=== PATIENT | male | born 1945 | race Caucasian/White ===

== ENCOUNTER 2016-05-14 14:47 | Outpatient (CLI) | payer MEDICARE, OTHER | END 2016-05-14 14:48 | disposition home or self-care (01) | DX: E61.1 Iron deficiency (principal) ==

== ENCOUNTER 2016-05-29 11:19 | Outpatient (CLI) | payer MEDICARE, OTHER | END 2016-05-29 11:20 | disposition home or self-care (01) | DX: K21.9 Gastro-esophageal reflux disease without esophagitis (principal); K51.30 Ulcerative (chronic) rectosigmoiditis without complications ==

== ENCOUNTER 2016-08-02 09:15 | Outpatient (CLI) | payer MEDICARE, OTHER ==
[2016-08-02 13:21] LABS: HEMOGLOBIN A1C 0.57 g/dL
[2016-08-02 13:26] LABS: ALBUMIN/GLOBULIN RATIO 1.3 (1.0-2.2); BILIRUBIN,TOTAL 0.6 mg/dL (0.2-1.0); BUN - BLOOD UREA NITROGEN 14 mg/dL (6-20); CARBON DIOXIDE - CO2 30 mmol/L (21-32); CHLORIDE 96 mmol/L (101-111); CHOL/HDL RATIO 3.2 (<5.0); CHOLESTEROL 162 mg/dL; CREATININE 0.9 mg/dL (0.6-1.2); GFR - MDRD 83 (>89); GLUCOSE 108 mg/dL (70-100); HDL CHOLESTEROL 50 mg/dL; LDL/HDL RATIO 1.7 (<3.6); POTASSIUM 3.8 mmol/L (3.5-5.0); SODIUM 133 mmol/L (135-145); TOTAL PROTEIN 7.2 g/dL (6.7-8.2); TRIGLYCERIDES 134 mg/dL; VLDL CHOLESTEROL 27 mg/dL
== END 2016-08-02 09:16 | disposition home or self-care (01) ==
LOC: LAB.WCP 09:15
PROVIDERS: ATTEND Physician Assistant Medical
DX: Z51.81 Encounter for therapeutic drug level monitoring (principal)
CPT/HCPCS: 36415; 80053; 80061; 82043; 83036; 84443

== ENCOUNTER 2016-08-09 13:18 | Outpatient (CLI) | payer MEDICARE, OTHER ==
[2016-08-09 19:15] LABS: BASOPHILS % (AUTO) 0.5 %; EOSINOPHILS # (AUTO) 0.1 10^3/uL (0.0-0.7); EOSINOPHILS % (AUTO) 1.1 %; HCT - HEMATOCRIT 37.7 % (42.0-52.0); HGB - HEMOGLOBIN 12.9 g/dL (14.0-18.0); LYMPHOCYTES # (AUTO) 1.5 10^3/uL (1.5-3.5); LYMPHOCYTES % (AUTO) 16.9 %; MEAN CORPUSCULAR HEMOGLOBIN 30.2 pg (27.0-31.0); MEAN CORPUSCULAR HGB CONC 34.3 g/dL (32.0-36.0); MEAN CORPUSCULAR VOLUME 88.2 fL (80.0-94.0); MEAN PLATELET VOLUME 8.4 fL (7.4-11.4); MONOCYTES # (AUTO) 0.8 10^3/uL (0.0-1.0); MONOCYTES % (AUTO) 8.8 %; NEUTROPHILS # (AUTO) 6.5 10^3/uL (1.5-6.6); NEUTROPHILS % (AUTO) 72.7 %; NUCLEATED RED BLOOD CELLS AUTO 0.1 /100WBC; RED BLOOD COUNT 4.27 10^6/uL (4.70-6.10); RED CELL DISTRIBUTION WIDTH 12.8 % (12.0-15.0)
== END 2016-08-09 13:19 | disposition home or self-care (01) ==
LOC: LAB.WCP 13:18
PROVIDERS: ATTEND Physician Assistant Medical
DX: E61.1 Iron deficiency (principal)
CPT/HCPCS: 36415; 82728; 85025

== ENCOUNTER 2016-12-02 13:45 | Outpatient (CLI) | payer MEDICARE, OTHER ==
[2016-12-02 19:17] LABS: BASOPHILS % (AUTO) 0.5 %; EOSINOPHILS # (AUTO) 0.1 10^3/uL (0.0-0.7); EOSINOPHILS % (AUTO) 1.9 %; HCT - HEMATOCRIT 38.6 % (42.0-52.0); HGB - HEMOGLOBIN 13.1 g/dL (14.0-18.0); LYMPHOCYTES # (AUTO) 1.3 10^3/uL (1.5-3.5); LYMPHOCYTES % (AUTO) 17.1 %; MEAN CORPUSCULAR HEMOGLOBIN 30.6 pg (27.0-31.0); MEAN PLATELET VOLUME 8.2 fL (7.4-11.4); MONOCYTES # (AUTO) 0.7 10^3/uL (0.0-1.0); MONOCYTES % (AUTO) 9.5 %; NEUTROPHILS # (AUTO) 5.5 10^3/uL (1.5-6.6); RED BLOOD COUNT 4.29 10^6/uL (4.70-6.10); RED CELL DISTRIBUTION WIDTH 12.6 % (12.0-15.0); UNCORRECTED WHITE BLOOD COUNT 7.7 x10^3/uL; WHITE BLOOD COUNT 7.7 x10^3/uL (4.8-10.8)
[2016-12-02 19:35] LABS: ALBUMIN/GLOBULIN RATIO 1.4 (1.0-2.2); BILIRUBIN,TOTAL 0.6 mg/dL (0.2-1.0); CALCIUM 9.3 mg/dL (8.5-10.3); CREATININE 0.8 mg/dL (0.6-1.2); POTASSIUM 3.9 mmol/L (3.5-5.0); TOTAL PROTEIN 7.1 g/dL (6.7-8.2)
== END 2016-12-02 13:46 | disposition home or self-care (01) ==
LOC: LAB.WCP 13:45
PROVIDERS: ATTEND Physician Assistant Medical
DX: J44.9 Chronic obstructive pulmonary disease, unspecified (principal); R53.83 Other fatigue; Z51.81 Encounter for therapeutic drug level monitoring; Z79.899 Other long term (current) drug therapy
CPT/HCPCS: 36415; 80053; 85025

== ENCOUNTER 2016-12-05 10:45 | Outpatient (CLI) | payer MEDICARE, OTHER ==
[2016-12-05 11:10] LABS: ALBUMIN/GLOBULIN RATIO 1.4 (1.0-2.2); BILIRUBIN,TOTAL 0.6 mg/dL (0.2-1.0); CALCIUM 9.1 mg/dL (8.5-10.3); CREATININE 0.9 mg/dL (0.6-1.2); POTASSIUM 3.9 mmol/L (3.5-5.0); TOTAL PROTEIN 7.3 g/dL (6.7-8.2)
[2016-12-05] MEDS ORDERED: IOPAMIDOL-300 100 ML VIAL ONE (11:52)
[2016-12-05] MEDS ORDERED: IOPAMIDOL-300 100 ML VIAL IVP ONE ×2 (12:15)
--- NOTE | 2016-12-05 13:14 | CT Report ---
CT CHEST WITH CONTRAST: 12/05/2016 CLINICAL INDICATION: Dyspnea on exertion. COMPARISON: 06/01/2014 TECHNIQUE: Axial CT images of the chest were obtained with 80 mL of Isovue-300 intravenously. In accordance with CT protocol optimization, one or more of the following dose reduction techniques w ere utilized for this exam: automated exposure control, adjustment of mA and/or KV based on patient size, or use of iterative reconstructive technique. FINDINGS: The heart and great vessels demonstrate mild atherosclerotic calcification. No hilar or m ediastinal lymphadenopathy is present. A small sliding hiatal hernia is noted. The lungs demonstrat e minimal atelectasis. No focal infiltrate, effusion, or pneumothorax is present. No suspicious pul monary nodule or mass lesion is seen. Limited evaluation of upper abdominal structures demonstrates normal adrenal glands. Osseous structures demonstrate degenerative changes. IMPRESSION: NO EVIDENT ETIOLOGY FOR PATIENT'S DYSPNEA. MINIMAL ATELECTASIS. JOB #: [id number] EXT JOB #:[id number]
== END 2016-12-05 10:46 | disposition home or self-care (01) ==
LOC: LAB 10:45
PROVIDERS: ATTEND Physician Assistant Medical
DX: J44.9 Chronic obstructive pulmonary disease, unspecified (principal); R06.00 Dyspnea, unspecified; Z51.81 Encounter for therapeutic drug level monitoring; Z79.899 Other long term (current) drug therapy
CPT/HCPCS: 36415; 71260; 80053; Q9967

== ENCOUNTER 2016-12-26 10:25 | Outpatient (CLI) | payer MEDICARE, OTHER ==
[2016-12-26] MEDS ORDERED: ADENOSINE 90 MG/30 ML VIAL IVP ONE (13:30)
--- NOTE | 2016-12-26 17:03 | Nuclear Medicine Report ---
EXAM: SINGLE-ISOTOPE PHARMACOLOGICAL STRESS TEST WITH ADENOSINE. SINGLE-ISOTOPE AND SAME-DAY REST/STRESS MY OCARDIAL PERFUSION SCANS WITH TOMOGRAPHIC IMAGING, QUANTITATIVE ANALYSIS, WALL MOTION ANALYSIS AND CA LCULATION OF EJECTION FRACTION. EXAM DATE: 12/26/2016 03:30 PM. CLINICAL HISTORY: DYSPNEA ON EXERTION. COMPARISON: None. TECHNIQUE: Following the intravenous administration of 10.7 mCi of Tc-99m sestamibi, a rest myocardia l perfusion scan was done with tomography. Motion correction was applied when appropriate. After a delay of several hours on the same day, a pharmacological stress was performed with the infus ion of 0.4 mg of Lexiscan. According to protocol, 41.5 mCi of Tc-99m sestamibi was injected for stres s myocardial perfusion scan. Stress myocardial perfusion was done with tomography without attenuation correction. Motion correction was applied when appropriate. Gated tomographic images were obtained for wall motion analysis and computation of left ventricular ejection fraction. FINDINGS: Perfusion images: Left ventricular chamber size is normal at rest and unchanged at stress. There is a moderate size region of moderately reduced uptake involving the entire inferior wall on st ress images which is similar on both rest and stress images, without convincing focal wall motion abn ormality on gated images, diaphragmatic attenuation artifact versus infarct No convincing reversible perfusion deficits. Gated images: No focal wall motion abnormality. The left ventricular ejection fraction is estimated at 67% (normal > 50%). IMPRESSION: 1. No convincing reversible perfusion deficits to indictate stress-induced ischemia. 2. Moderate size, moderate severity fixed inferior wall perfusion deficit may represent diaphragmatic attenuation artifact, versus infarct. 3. Left ventricular ejection fraction of 67% (normal > 50%). 4. No focal wall motion abnormalities. [facility] Referring Provider Line: [phone] SITE ID: [id number]
[2016-12-26 19:03] VITALS: BP 132/70
--- NOTE | 2016-12-26 22:48 | CARDIAC PROCEDURE NOTE ---
DATE OF SERVICE: 12/26/2016 00:00:00 PRIMARY CARE PHYSICIAN: IVONE Fuentes PROCEDURE: Pharmacologic stress test. PROCEDURE SYMPTOMS: Chest pain and dyspnea on exertion. CARDIAC RISK FACTORS: Include age, hypertension, hyperlipidemia, and diabetes. PREVIOUS CARDIAC PROCEDURES: MPS in February 2015. CLINICAL HISTORY: A 71-year-old male without known coronary artery disease. He uses home oxygen. INITIAL RESTING VITAL SIGNS: BP 132/70, heart rate 66, height 67 inches, weight 207 pounds, BMI 31.7. SaO2 of 95%. PROCEDURE AND FINDINGS: The patient's identity and date verified. Consent signed. Safety stop. Pharmacologic stress testing was performed with adenosine at a dose of 140 mcg/kg per minute over 6 m inutes. The heart rate increased to 93 beats per minute from the infusion. Blood pressure response wa s normal during the stress procedure. The patient developed infusion related symptoms including chest heaviness, shortness of breath, and flushing. Symptoms resolved spontaneously. The resting ECG demon strated normal sinus rhythm with no ST or T-wave changes. Maximum ST segment depression with stress w as less than 0.5 mm and upsloping. There were rare PVCs. FINAL IMPRESSIONS 1. Negative electrocardiogram for ischemia in the setting of vasodilator stress. 2. Nondiagnostic stress test for angina. DISCUSSION AND RECOMMENDATIONS: Await myocardial perfusion report. JOB #: [id number] EXT JOB #:[id number]
== END 2016-12-26 10:26 | disposition home or self-care (01) ==
LOC: DI 10:25
PROVIDERS: ATTEND Physician Assistant Medical
DX: R06.00 Dyspnea, unspecified (principal); I10 Essential (primary) hypertension; E78.5 Hyperlipidemia, unspecified; E11.9 Type 2 diabetes mellitus without complications; R07.9 Chest pain, unspecified
CPT/HCPCS: 78452; 93017; A9500; J0153

== ENCOUNTER 2017-05-29 08:00 | Outpatient (CLI) | payer MEDICARE, OTHER ==
[2017-05-29 12:44] LABS: BASOPHILS % (AUTO) 0.4 %; EOSINOPHILS # (AUTO) 0.2 10^3/uL (0.0-0.7); EOSINOPHILS % (AUTO) 3.2 %; HGB - HEMOGLOBIN 13.1 g/dL (14.0-18.0); LYMPHOCYTES # (AUTO) 1.1 10^3/uL (1.5-3.5); LYMPHOCYTES % (AUTO) 18.5 %; MEAN CORPUSCULAR HEMOGLOBIN 30.8 pg (27.0-31.0); MEAN CORPUSCULAR HGB CONC 34.8 g/dL (32.0-36.0); MEAN CORPUSCULAR VOLUME 88.7 fL (80.0-94.0); MEAN PLATELET VOLUME 8.3 fL (7.4-11.4); MONOCYTES # (AUTO) 0.6 10^3/uL (0.0-1.0); MONOCYTES % (AUTO) 10.1 %; NEUTROPHILS # (AUTO) 4.2 10^3/uL (1.5-6.6); NEUTROPHILS % (AUTO) 67.8 %; PLT - PLATELET COUNT 200 10^3/uL (130-450); RED BLOOD COUNT 4.25 10^6/uL (4.70-6.10); RED CELL DISTRIBUTION WIDTH 12.6 % (12.0-15.0); WHITE BLOOD COUNT 6.2 x10^3/uL (4.8-10.8)
[2017-05-29 13:01] LABS: THYROID STIMULATING HORMONE 1.98 uIU/mL (0.34-5.60)
[2017-05-29 13:04] LABS: % IRON SATURATION 20 % (20-50); ALBUMIN 4.3 g/dL (3.2-5.5); ALBUMIN/GLOBULIN RATIO 1.6 (1.0-2.2); ALKALINE PHOSPHATASE 43 IU/L (42-121); ALT ALANINE AMINOTRANSFERASE 15 IU/L (10-60); AST ASPARTATE AMINOTRANSFERASE 14 IU/L (10-42); BILIRUBIN,TOTAL 0.3 mg/dL (0.2-1.0); BUN - BLOOD UREA NITROGEN 17 mg/dL (6-20); CALCIUM 8.9 mg/dL (8.5-10.3); CARBON DIOXIDE - CO2 32 mmol/L (21-32); CHLORIDE 94 mmol/L (101-111); CHOL/HDL RATIO 3.6 (<5.0); CHOLESTEROL 161 mg/dL; CREATININE 0.8 mg/dL (0.6-1.2); GFR - MDRD 95 (>89); GLUCOSE 108 mg/dL (70-100); HDL CHOLESTEROL 45 mg/dL; IRON 70 ug/dL (45-182); LDL CHOLESTEROL,CALCULATED 87 mg/dL; LDL/HDL RATIO 1.9 (<3.6); SODIUM 131 mmol/L (135-145); TOTAL IRON BINDING CAPACITY 349 ug/dL (250-450); TRANSFERRIN 249 mg/dL (180-329); VLDL CHOLESTEROL 29 mg/dL
[2017-05-29 13:06] LABS: FERRITIN 34.7 ng/mL (23.9-336.2)
[2017-05-29 15:41] LABS: HB2 TOTAL 14.2 g/dL; HEMOGLOBIN A1C 0.59 g/dL
== END 2017-05-29 08:01 | disposition home or self-care (01) ==
LOC: LAB.WCP 08:00
PROVIDERS: ATTEND Physician Assistant Medical
DX: E11.9 Type 2 diabetes mellitus without complications (principal); E61.1 Iron deficiency; E64.9 Sequelae of unspecified nutritional deficiency; Z51.81 Encounter for therapeutic drug level monitoring; Z79.899 Other long term (current) drug therapy
CPT/HCPCS: 36415; 80053; 80061; 82728; 83036; 83540; 83721; 84443; 84466; 85025

== ENCOUNTER 2017-09-12 10:17 | Outpatient (CLI) | payer MEDICARE, OTHER ==
[2017-09-12 19:10] LABS: BASOPHILS # (AUTO) 0.1 10^3/uL (0.0-0.1); BASOPHILS % (AUTO) 1.4 %; EOSINOPHILS # (AUTO) 0.2 10^3/uL (0.0-0.7); EOSINOPHILS % (AUTO) 3.3 %; LYMPHOCYTES # (AUTO) 1.2 10^3/uL (1.5-3.5); MEAN CORPUSCULAR HEMOGLOBIN 30.6 pg (27.0-31.0); MEAN CORPUSCULAR HGB CONC 34.1 g/dL (32.0-36.0); MEAN PLATELET VOLUME 7.8 fL (7.4-11.4); MONOCYTES # (AUTO) 0.7 10^3/uL (0.0-1.0); MONOCYTES % (AUTO) 10.3 %; NEUTROPHILS # (AUTO) 4.4 10^3/uL (1.5-6.6); PLT - PLATELET COUNT 219 10^3/uL (130-450); RED CELL DISTRIBUTION WIDTH 12.7 % (12.0-15.0); WHITE BLOOD COUNT 6.6 x10^3/uL (4.8-10.8)
[2017-09-12 19:12] LABS: BILIRUBIN,URINE NEGATIVE (NEGATIVE); GLUCOSE, URINE (UA) NEGATIVE (NEGATIVE); KETONES,URINE (UA) NEGATIVE (NEGATIVE); LEUKOCYTE ESTERASE, URINE NEGATIVE (NEGATIVE); NITRITE,URINE NEGATIVE (NEGATIVE); OCCULT BLOOD,URINE NEGATIVE (NEGATIVE); PH,URINE 6.5 PH (5.0-7.5); PROTEIN,URINE NEGATIVE (NEGATIVE); UROBILINOGEN,URINE 0.2 (NORMAL) E.U./dL (NORMAL)
[2017-09-12 19:14] LABS: CLARITY,URINE CLEAR (CLEAR)
[2017-09-12 19:27] LABS: BACTERIA,URINE None Seen /HPF (None Seen); RBC,URINE None Seen /HPF (0-5); SQUAMOUS EPITHELIAL CELL,UR NONE SEEN (<= Few)
[2017-09-12 19:44] LABS: ALBUMIN 3.7 g/dL (3.2-5.5); ALBUMIN/GLOBULIN RATIO 1.2 (1.0-2.2); ALKALINE PHOSPHATASE 47 IU/L (42-121); ALT ALANINE AMINOTRANSFERASE 14 IU/L (10-60); AST ASPARTATE AMINOTRANSFERASE 15 IU/L (10-42); BILIRUBIN,TOTAL 0.9 mg/dL (0.2-1.0); BUN - BLOOD UREA NITROGEN 17 mg/dL (6-20); CALCIUM 9.1 mg/dL (8.5-10.3); CARBON DIOXIDE - CO2 30 mmol/L (21-32); CHLORIDE 93 mmol/L (101-111); CHOL/HDL RATIO 2.9 (<5.0); CHOLESTEROL 146 mg/dL; CREATININE 0.9 mg/dL (0.6-1.2); GFR - MDRD 82 (>89); GLUCOSE 98 mg/dL (70-100); HDL CHOLESTEROL 50 mg/dL; LDL CHOLESTEROL,CALCULATED 76 mg/dL; LDL/HDL RATIO 1.5 (<3.6); SODIUM 130 mmol/L (135-145); TOTAL PROTEIN 6.7 g/dL (6.7-8.2); VLDL CHOLESTEROL 20 mg/dL
[2017-09-12 19:51] LABS: THYROID STIMULATING HORMONE 1.37 uIU/mL (0.34-5.60)
== END 2017-09-12 10:18 | disposition home or self-care (01) ==
LOC: LAB.WCP 10:17
PROVIDERS: ATTEND Family Medicine
DX: R53.83 Other fatigue (principal); E61.1 Iron deficiency; K51.90 Ulcerative colitis, unspecified, without complications; E11.9 Type 2 diabetes mellitus without complications; K22.70 Barrett's esophagus without dysplasia; I10 Essential (primary) hypertension
CPT/HCPCS: 36415; 80053; 80061; 81001; 82306; 82607; 82746; 84443; 85025; G0103; 83721; 84153; 87086

== ENCOUNTER → 2017-12-19 | Outpatient (CLI) | payer MEDICARE, OTHER ==
[2017-12-19 18:31] LABS: BASOPHILS % (AUTO) 0.6 %; EOSINOPHILS # (AUTO) 0.2 10^3/uL (0.0-0.7); EOSINOPHILS % (AUTO) 2.4 %; LYMPHOCYTES # (AUTO) 1.4 10^3/uL (1.5-3.5); LYMPHOCYTES % (AUTO) 20.3 %; MEAN CORPUSCULAR HEMOGLOBIN 29.7 pg (27.0-31.0); MEAN CORPUSCULAR HGB CONC 33.1 g/dL (32.0-36.0); MEAN CORPUSCULAR VOLUME 89.9 fL (80.0-94.0); MEAN PLATELET VOLUME 8.4 fL (7.4-11.4); MONOCYTES # (AUTO) 0.7 10^3/uL (0.0-1.0); NEUTROPHILS # (AUTO) 4.5 10^3/uL (1.5-6.6); NEUTROPHILS % (AUTO) 66.7 %; PLT - PLATELET COUNT 195 10^3/uL (130-450); RED BLOOD COUNT 4.37 10^6/uL (4.70-6.10); RED CELL DISTRIBUTION WIDTH 12.7 % (12.0-15.0); WHITE BLOOD COUNT 6.7 x10^3/uL (4.8-10.8)
[2017-12-19 18:49] LABS: HB2 TOTAL 13.3 g/dL; HEMOGLOBIN A1C 0.59 g/dL; HEMOGLOBIN A1C % 6.2 % (4.6-6.2)
[2017-12-19 18:52] LABS: ALBUMIN 4.1 g/dL (3.2-5.5); ALBUMIN/GLOBULIN RATIO 1.5 (1.0-2.2); ALKALINE PHOSPHATASE 55 IU/L (42-121); ALT ALANINE AMINOTRANSFERASE 14 IU/L (10-60); AST ASPARTATE AMINOTRANSFERASE 15 IU/L (10-42); BILIRUBIN,TOTAL 0.7 mg/dL (0.2-1.0); BUN - BLOOD UREA NITROGEN 18 mg/dL (6-20); CARBON DIOXIDE - CO2 32 mmol/L (21-32); CHLORIDE 93 mmol/L (101-111); CHOL/HDL RATIO 3.5 (<5.0); CHOLESTEROL 165 mg/dL; CREATININE 0.9 mg/dL (0.6-1.2); GFR - MDRD 82 (>89); GLUCOSE 100 mg/dL (70-100); HDL CHOLESTEROL 47 mg/dL; LDL CHOLESTEROL,CALCULATED 93 mg/dL; SODIUM 132 mmol/L (135-145); TOTAL PROTEIN 6.8 g/dL (6.7-8.2); VLDL CHOLESTEROL 25 mg/dL
[2017-12-22 14:23] LABS: PSA FREE 0.36 ng/mL (0.16-2.81)
[2017-12-22 14:24] LABS: PSA TOTAL 2.46 ng/mL (0.000-2.000)
== END ==
LOC: LAB.WCP 08:00
PROVIDERS: ATTEND Physician Assistant Medical
DX: E11.9 Type 2 diabetes mellitus without complications (principal); Z12.5 Encounter for screening for malignant neoplasm of prostate; E61.1 Iron deficiency; R97.20 Elevated prostate specific antigen [PSA]
CPT/HCPCS: 36415; 80053; 80061; 83036; 84154; 85025; G0103; 83721; 84153

== ENCOUNTER 2018-04-20 11:01 | Outpatient (CLI) | payer MEDICARE, OTHER ==
[2018-04-20 20:07] LABS: CALCIUM 9.2 mg/dL (8.5-10.3)
[2018-04-20 22:01] LABS: HB2 TOTAL 14.6 g/dL; HEMOGLOBIN A1C 0.61 g/dL
== END 2018-04-20 11:02 | disposition home or self-care (01) ==
LOC: LAB.WCP 11:01
PROVIDERS: ATTEND Physician Assistant Medical
DX: E11.9 Type 2 diabetes mellitus without complications (principal)
CPT/HCPCS: 36415; 80048; 83036

== ENCOUNTER 2018-07-06 16:24 | Emergency (ER) | payer MEDICARE, OTHER ==
--- NOTE | 2018-07-06 16:47 | ED Physician Documentation ---
PD HPI FOCAL NEURO - Stated complaint Stated Complaint: DIZZY/HBP - Chief complaint Chief Complaint: Neuro - History obtained from History obtained from: Patient - History of Present Illness Timing - onset: Other (73-year-old gentleman with history of hypertension and COPD with oxygen dependence presents with about 3 days of lightheadedness disequilibrium and mild headache. He checked his blood pressure today noted to be about 180/90 and this concerned him. He says he last had it checked about 2 months ago and it was okay but does not remember the numbers. He denies chest pain with it. He does have mildly increased over baseline shortness of breath with productive cough.) Review of Systems Ten Systems: 10 systems reviewed and negative Constitutional: denies: Fever, Chills Nose: denies: Rhinorrhea / runny nose, Congestion Cardiac: denies: Chest pain / pressure, Palpitations, Pedal edema, Calf pain Respiratory: reports: Dyspnea, Cough, Wheezing. denies: Hemoptysis GI: denies: Abdominal Pain, Nausea, Vomiting, Diarrhea PD PAST MEDICAL HISTORY - Past Medical History Cardiovascular: Hypertension, High cholesterol Respiratory: COPD Endocrine/Autoimmune: None GI: GERD, Ulcerative colitis, Other : None HEENT:  Psych: Claustrophobia Musculoskeletal: Osteoarthritis Derm: Other - Past Surgical History General: Colonoscopy, EGD - Present Medications Home Medications: Ambulatory Orders Medication Instructions Recorded Confirmed Hydrochlorothiazide 25 mg PO DAILY 03/10/14 08/15/14 Mesalamine [Lialda] 3 tab PO BID 03/10/14 08/15/14 PARoxetine [Paxil] 15 mg PO DAILY 03/10/14 08/15/14 Albuterol Sulfate [Proair PRN 07/06/18 Respiclick] Ipratropium [place] 2 sprays INH DAILY 07/06/18 07/06/18 Losartan Potassium 1 tab ORAL BID 07/06/18 07/06/18 Pravastatin Sodium 1 tab ORAL BID 07/06/18 07/06/18 Tiotropium Br/Olodaterol HCl 2 puffs INH DAILY 07/06/18 07/06/18 [Stiolto Respimat Inhal [place]] amLODIPine [Norvasc] 5 mg ORAL BID 07/06/18 07/06/18 metFORMIN [Glucophage] 1 tab ORAL DAILY 07/06/18 07/06/18 raNITIdine [Zantac] 1 tab ORAL BID 07/06/18 07/06/18 - Allergies Allergies/Adverse Reactions: Allergies Allergy/AdvReac Type Severity Reaction Status Date / Time No Known Drug Allergies Allergy Verified 07/06/18 16:29 PD ED PE NORMAL - Vitals Vital signs reviewed: Yes - General General: Alert and oriented X 3, No acute distress - HEENT HEENT: PERRL, EOMI - Neck Neck: Supple, no meningeal sign, No bony TTP - Cardiac Cardiac: RRR, No murmur - Respiratory Respiratory: No respiratory distress, Other (Rhonchorous and wheezy throughout) - Abdomen Abdomen: Soft, Non tender - Derm Derm: Normal color, Warm and dry, No rash - Extremities Extremities: No edema, No calf tenderness / cord - Neuro Neuro: Alert and oriented X 3, oil and gas drafter 2-12 intact, No motor deficit, No sensory deficit, Normal speech Results - Vitals Vitals: Vital Signs - 24 hr 07/06/18 07/06/18 16:26 17:45 Temperature 36.4 C L Heart Rate 83 74 Respiratory 22 16 Rate Blood Pressure 171/88 H 143/77 H O2 Saturation 97 98 Oxygen O2 Source Nasal cannula - EKG (time done) 1640 Rate: Rate (enter#) (76) Rhythm: NSR (With occasional PVCs) [place]: Normal Intervals: Normal [place] QRS: Low voltage Ischemia: Normal ST segments Computer interpretation: Agree with computer - Labs Labs: Laboratory Tests 07/06/18 07/06/18 07/06/18 16:55 16:55 16:55 WBC 8.5 RBC 4.23 L Hgb 12.8 L Hct 37.5 L MCV 88.6 MCH 30.3 MCHC 34.2 RDW 12.2 Plt Count 183 MPV 7.8 Neut # (Auto) 6.3 Lymph # (Auto) 1.2 L [place] # (Auto) 0.8 Eos # (Auto) 0.2 Baso # (Auto) 0.0 Absolute Nucleated RBC 0.00 Nucleated RBC % 0.0 Sodium 137 Potassium 3.3 L Chloride 98 L Carbon Dioxide 31 Anion Gap 8.0 BUN 18 Creatinine 0.9 Estimated GFR (MDRD) 82 L Glucose 120 H Calcium 9.3 Total Bilirubin 0.2 AST 15 ALT 16 Alkaline Phosphatase 54 Troponin I < 0.04 Total Protein 6.7 Albumin 3.9 Globulin 2.8 Albumin/Globulin Ratio 1.4 Lipase 29 - Rads (name of study) Ct head Radiology: EMP read contemporaneously (NAD) 2v chest Radiology: EMP read contemporaneously (NAD) PD MEDICAL DECISION MAKING - ED course ED course: 73-year-old gentleman with history of hypertension and COPD on oxygen presents with nonspecific headache, dizziness, mild increase in shortness of breath. He appears well. He was most worried about his blood pressure which throughout his ED course drifted down without specific intervention to 140/70. The only pertinent positive finding was stable anemia and mild hypokalemia which was repleted orally. Departure - Departure Disposition: 01 Home, Self Care Clinical Impression: Dizziness, Hypokalemia Headache Qualifiers: Headache type: unspecified Headache chronicity pattern: acute headache Intractability: not intractable Qualified Code(s): R51 - Headache Hypertension Qualifiers: Hypertension type: essential hypertension Qualified Code(s): I10 - Essential (primary) hypertension Condition: Good Record reviewed to determine appropriate education?: Yes Instructions: ED Dizziness UKO, Hypokalemia Dc Comments: Call your doctor to arrange a follow-up appointment, make the next available appointment. In the interim, return anytime if worse or if new symptoms develop.
[2018-07-06 17:05] LABS: BASOPHILS % (AUTO) 0.3 %; EOSINOPHILS # (AUTO) 0.2 10^3/uL (0.0-0.7); EOSINOPHILS % (AUTO) 2.3 %; HGB - HEMOGLOBIN 12.8 g/dL (14.0-18.0); LYMPHOCYTES # (AUTO) 1.2 10^3/uL (1.5-3.5); LYMPHOCYTES % (AUTO) 14.2 %; MEAN CORPUSCULAR HEMOGLOBIN 30.3 pg (27.0-31.0); MEAN CORPUSCULAR HGB CONC 34.2 g/dL (32.0-36.0); MEAN CORPUSCULAR VOLUME 88.6 fL (80.0-94.0); MEAN PLATELET VOLUME 7.8 fL (7.4-11.4); MONOCYTES # (AUTO) 0.8 10^3/uL (0.0-1.0); MONOCYTES % (AUTO) 9.4 %; NEUTROPHILS # (AUTO) 6.3 10^3/uL (1.5-6.6); NEUTROPHILS % (AUTO) 73.8 %; PLT - PLATELET COUNT 183 10^3/uL (130-450); RED BLOOD COUNT 4.23 10^6/uL (4.70-6.10); RED CELL DISTRIBUTION WIDTH 12.2 % (12.0-15.0); WHITE BLOOD COUNT 8.5 x10^3/uL (4.8-10.8)
[2018-07-06 17:16] LABS: ALBUMIN 3.9 g/dL (3.2-5.5); ALBUMIN/GLOBULIN RATIO 1.4 (1.0-2.2); BILIRUBIN,TOTAL 0.2 mg/dL (0.2-1.0); CALCIUM 9.3 mg/dL (8.5-10.3); CREATININE 0.9 mg/dL (0.6-1.2); TOTAL PROTEIN 6.7 g/dL (6.7-8.2)
--- NOTE | 2018-07-06 17:46 | CT Report ---
Reason: headache, unsteady Procedure Date: 07/06/2018 Accession Number: [id number] / [id number] Procedure: CT - HEAD WO CPT Code: FULL RESULT: EXAM: CT HEAD EXAM DATE: 07/06/2018 05:20 PM. CLINICAL HISTORY: Headache, unsteady. COMPARISON: BRAIN W/WO 08/30/2013 3:53 PM. TECHNIQUE: Multiaxial CT images were obtained from the foramen magnum to the vertex. Reformats: Sagittal and coronal. IV contrast: None. In accordance with CT protocol optimization, one or more of the following dose reduction techniques were utilized for this exam: automated exposure control, adjustment of mA and/or KV based on patient size, or use of iterative reconstructive technique. FINDINGS: The imaged portions of the orbits are normal in appearance. There is a mucous retention cyst in the right maxillary sinus. The remainder of the paranasal sinuses are normally aerated. The bilateral mastoid air cells are normally aerated. There is calcific plaquing of the cavernous and supraclinoid intracranial internal carotid arteries bilaterally. There is no acute collection of blood or blood products, or mass. There is no midline shift. The parekh-white differentiation remains distinct. Cerebral volume and ventricular size are normal. The imaged portions of the orbits are normal in appearance. The bilateral parotid spaces exhibit symmetric densities. IMPRESSION: 1. There is no acute intracranial abnormality.
[2018-07-06 17:50] VITALS: BP 143/77
--- NOTE | 2018-07-06 18:02 | XRAY Report ---
Reason: cough, bronchitis Procedure Date: 07/06/2018 Accession Number: [id number] / [id number] Procedure: XR - Chest 2 View X-Ray CPT Code: 87194 FULL RESULT: EXAM: CHEST RADIOGRAPHY EXAM DATE: 07/06/2018 05:20 PM. CLINICAL HISTORY: Cough, bronchitis. COMPARISON: CHEST 2 VIEW PA/LAT 08/22/2015 3:51 PM. TECHNIQUE: 2 views. FINDINGS: Lungs/Pleura: No focal opacities evident. No pleural effusion. No pneumothorax. Normal volumes. Mediastinum: Heart and mediastinal contours are unremarkable. Other: Small hiatal hernia. IMPRESSION: No acute pulmonary airspace disease. Small hiatal hernia. [facility]
[2018-07-06] MEDS ORDERED: POTASSIUM CHLORIDE 20 MEQ TABLET PO STA (18:08)
== END 2018-07-06 18:21 | disposition home or self-care (01) ==
LOC: ED 16:24
DX: R42 Dizziness and giddiness (principal); E87.6 Hypokalemia; R51 Headache; I10 Essential (primary) hypertension; J44.9 Chronic obstructive pulmonary disease, unspecified; Z99.81 Dependence on supplemental oxygen
CPT/HCPCS: 36415; 70450; 71046; 80053; 83690; 84484; 85025; 93005; 99283; A9270

== ENCOUNTER 2018-07-30 09:06 | Outpatient (CLI) | payer MEDICARE, OTHER ==
[2018-07-30] MEDS ORDERED: GADOBUTROL 10 MMOL/10 ML VIAL ONE (10:18)
--- NOTE | 2018-07-30 10:30 | Ultrasound Report ---
Reason: DIZZINESS, VISION DISORDER Procedure Date: 07/30/2018 Accession Number: [id number] / [id number] Procedure: US - Carotid Doppler Complete CPT Code: FULL RESULT: EXAM: BILATERAL CAROTID AND VERTEBRAL ARTERY DUPLEX DOPPLER ULTRASOUND: EXAM DATE: 07/30/2018 09:50 AM CLINICAL HISTORY: Dizziness, vision disorder. COMPARISON: 07/30/2018 10:02 AM. TECHNIQUE: Grayscale imaging, color Doppler, and duplex spectral Doppler were used to evaluate the carotid and vertebral arteries bilaterally. Static images were obtained. FINDINGS: No significant plaque is identified in the right or left common or internal carotid arteries. Normal antegrade flow is present in bilateral vertebral arteries. VELOCITIES: Right CCA mid: PSV 92 cm/sec CCA dist: PSV 59 cm/sec ICA prox: PSV 45 cm/sec, EDV 13 cm/sec ICA mid: PSV 68 cm/sec, EDV 21 cm/sec ICA dist: PSV 53 cm/sec, EDV 13 cm/sec ECA: PSV 112 cm/sec Vert: PSV 57 cm/sec ICA/CCA: 0.74 Left CCA mid: PSV 83 cm/sec CCA dist: PSV 72 cm/sec ICA prox: PSV 81 cm/sec, EDV 23 cm/sec ICA mid: PSV 78 cm/sec, EDV 25 cm/sec ICA dist: PSV 51 cm/sec, EDV 12 cm/sec ECA: PSV 120 cm/sec Vert: PSV 53 cm/sec ICA/CCA: 0.98 ICA diameter stenosis: Right: <50% by velocity and <70% by NASCET criteria. Left: <50% by velocity and <70% by NASCET criteria. IMPRESSION: 1. No significant bilateral carotid artery plaquing. 2. In the right carotid artery there are no elevated carotid artery velocities to suggest hemodynamically significant stenosis. 3. In the left carotid artery there are no elevated carotid artery velocities to suggest hemodynamically significant stenosis. 4. Normal antegrade flow is present in bilateral vertebral arteries. Management recommendations and diagnostic criteria are based on current IAC endorsed standards in Carotid Artery Stenosis: Grayscale and Doppler Ultrasound Diagnosis. Validated velocity measurements with angiographic measurements and velocity criteria are extrapolated from diameter data as defined by the Society of Radiologists in Ultrasound Consensus Conference Radiology 2003; 229;340-346. [facility]
[2018-07-30] MEDS ORDERED: GADOBUTROL 10 MMOL/10 ML VIAL IVP ONE (11:14)
--- NOTE | 2018-07-30 20:03 | MRI Report ---
Reason: DIZZINESS, VISION DISORDER Procedure Date: 07/30/2018 Accession Number: [id number] / [id number] Procedure: MRI - Brain W/WO CPT Code: FULL RESULT: EXAM: MRI BRAIN WITHOUT AND WITH CONTRAST EXAM DATE: 07/30/2018 11:18 AM. CLINICAL HISTORY: DIZZINESS, VISION DISORDER. COMPARISON: BRAIN W/WO 08/30/2013 3:53 PM. TECHNIQUE: Multiplanar, multisequence T1-weighted and fluid-sensitive MR sequences of the brain were performed. Sequences optimized for routine evaluation. Other: None. IV Contrast: 9.5 mL Gadavist. FINDINGS: The diffusion-weighted images are normal. There is no evidence of acute or subacute cerebral infarction. The FLAIR images demonstrate multiple punctate and confluent areas of T2 hyperintensity within the subcortical, deep, and periventricular white matter. This is consistent with a mild to moderate degree of chronic small vessel ischemia. There is enlargement of the lateral ventricles and the third ventricle but not out of proportion to the enlargement of the cerebral sulci. This is consistent with a mild degree of generalized volume loss. There is normal enhancement within the deep venous sinuses. There is normal enhancement within the brain parenchyma. The T2* sequence is normal. There is no evidence of subacute or chronic hemorrhage. The corpus callosum is of normal size and configuration. The pituitary and sella are normal. The craniocervical junction is normal. The images are degraded by motion. The optic nerves demonstrate symmetric signal intensity and size. There is mild mucosal thickening in the ethmoid air cells and a small mucus retention cyst in the right maxillary sinus. The bilateral parotid spaces exhibit normal signal intensity. The cerebral vascular flow voids are patent. There is normal enhancement within the orbits. IMPRESSION: 1. There is no evidence of acute or subacute cerebral infarction. 2. There is no evidence of intraorbital mass. 3. There is mild to moderate degree of chronic small vessel ischemia and mild degree of generalized volume loss. 4. There is no enhancing brain mass.
== END 2018-07-30 09:07 | disposition home or self-care (01) ==
LOC: DI 09:06
PROVIDERS: ATTEND Physician Assistant Medical
DX: R42 Dizziness and giddiness (principal); H53.9 Unspecified visual disturbance; I67.82 Cerebral ischemia
CPT/HCPCS: 70553; 93880; A9585

== ENCOUNTER 2018-09-16 | Outpatient (CLI) | payer MEDICARE, OTHER | END 2018-09-16 13:37 | disposition home or self-care (01) | DX: M25.462 Effusion, left knee (principal); M25.562 Pain in left knee ==

== ENCOUNTER 2018-09-16 | Outpatient (CLI) | payer MEDICARE, OTHER | END 2018-09-16 13:39 | disposition home or self-care (01) | DX: S82.832A Other fracture of upper and lower end of left fibula, initial encounter for closed fracture (principal) ==

== ENCOUNTER 2018-09-16 | Outpatient (CLI) | payer MEDICARE, OTHER | END 2018-09-16 13:40 | disposition home or self-care (01) | DX: S82.832A Other fracture of upper and lower end of left fibula, initial encounter for closed fracture (principal); M19.072 Primary osteoarthritis, left ankle and foot; M25.462 Effusion, left knee; M25.562 Pain in left knee ==

== ENCOUNTER 2018-10-27 08:00 | Outpatient (CLI) | payer MEDICARE, OTHER ==
[2018-10-27 18:42] LABS: BASOPHILS % (AUTO) 0.6 %; EOSINOPHILS # (AUTO) 0.2 10^3/uL (0.0-0.7); EOSINOPHILS % (AUTO) 2.9 %; HGB - HEMOGLOBIN 12.6 g/dL (14.0-18.0); LYMPHOCYTES # (AUTO) 1.3 10^3/uL (1.5-3.5); LYMPHOCYTES % (AUTO) 19.8 %; MEAN CORPUSCULAR HEMOGLOBIN 30.4 pg (27.0-31.0); MEAN CORPUSCULAR HGB CONC 31.9 g/dL (32.0-36.0); MEAN CORPUSCULAR VOLUME 95.2 fL (80.0-94.0); MEAN PLATELET VOLUME 10.9 fL (7.4-11.4); MONOCYTES # (AUTO) 0.7 10^3/uL (0.0-1.0); MONOCYTES % (AUTO) 10.2 %; NEUTROPHILS # (AUTO) 4.5 10^3/uL (1.5-6.6); NEUTROPHILS % (AUTO) 66.2 %; PLT - PLATELET COUNT 199 10^3/uL (130-450); RED BLOOD COUNT 4.15 10^6/uL (4.70-6.10); RED CELL DISTRIBUTION WIDTH 12.3 % (12.0-15.0); WHITE BLOOD COUNT 6.8 x10^3/uL (4.8-10.8)
[2018-10-27 19:02] LABS: HEMOGLOBIN A1C 0.53 g/dL; HEMOGLOBIN A1C % 5.9 % (4.6-6.2)
[2018-10-27 19:11] LABS: ALBUMIN 3.9 g/dL (3.2-5.5); ALBUMIN/GLOBULIN RATIO 1.3 (1.0-2.2); ALKALINE PHOSPHATASE 55 IU/L (42-121); ALT ALANINE AMINOTRANSFERASE 13 IU/L (10-60); AST ASPARTATE AMINOTRANSFERASE 14 IU/L (10-42); BILIRUBIN,TOTAL 0.5 mg/dL (0.2-1.0); BUN - BLOOD UREA NITROGEN 20 mg/dL (6-20); CARBON DIOXIDE - CO2 31 mmol/L (21-32); CHLORIDE 101 mmol/L (101-111); CHOL/HDL RATIO 3.3 (<5.0); CHOLESTEROL 155 mg/dL; GFR - MDRD 73 (>89); GLUCOSE 104 mg/dL (70-100); HDL CHOLESTEROL 47 mg/dL; LDL CHOLESTEROL,CALCULATED 92 mg/dL; SODIUM 138 mmol/L (135-145); VLDL CHOLESTEROL 16 mg/dL
== END 2018-10-27 23:59 | disposition home or self-care (01) ==
LOC: LAB.WCP 08:00
PROVIDERS: ATTEND Physician Assistant Medical
DX: E11.9 Type 2 diabetes mellitus without complications (principal); E78.5 Hyperlipidemia, unspecified; E61.1 Iron deficiency
CPT/HCPCS: 36415; 80053; 80061; 82728; 83036; 83721; 85025

== ENCOUNTER 2019-04-23 15:41 | Outpatient (CLI) | payer MEDICARE, OTHER ==
[2019-04-23 12:00] LABS: BASOPHILS % (AUTO) 0.6 %; EOSINOPHILS # (AUTO) 0.3 10^3/uL (0.0-0.7); EOSINOPHILS % (AUTO) 4.3 %; HGB - HEMOGLOBIN 12.4 g/dL (14.0-18.0); LYMPHOCYTES # (AUTO) 1.6 10^3/uL (1.5-3.5); LYMPHOCYTES % (AUTO) 21.6 %; MEAN CORPUSCULAR HEMOGLOBIN 30.1 pg (27.0-31.0); MEAN CORPUSCULAR HGB CONC 32.2 g/dL (32.0-36.0); MEAN CORPUSCULAR VOLUME 93.4 fL (80.0-94.0); MEAN PLATELET VOLUME 10.1 fL (7.4-11.4); MONOCYTES # (AUTO) 0.7 10^3/uL (0.0-1.0); NEUTROPHILS # (AUTO) 4.5 10^3/uL (1.5-6.6); NEUTROPHILS % (AUTO) 63.2 %; PLT - PLATELET COUNT 254 10^3/uL (130-450); RED BLOOD COUNT 4.12 10^6/uL (4.70-6.10); RED CELL DISTRIBUTION WIDTH 12.1 % (12.0-15.0); WHITE BLOOD COUNT 7.2 x10^3/uL (4.8-10.8)
[2019-04-23 12:13] LABS: ALBUMIN 4.2 g/dL (3.2-5.5); ALBUMIN/GLOBULIN RATIO 1.4 (1.0-2.2); ALKALINE PHOSPHATASE 54 IU/L (42-121); ALT ALANINE AMINOTRANSFERASE 15 IU/L (10-60); AST ASPARTATE AMINOTRANSFERASE 14 IU/L (10-42); BILIRUBIN,TOTAL 0.6 mg/dL (0.2-1.0); BUN - BLOOD UREA NITROGEN 20 mg/dL (6-20); CALCIUM 9.4 mg/dL (8.5-10.3); CARBON DIOXIDE - CO2 31 mmol/L (21-32); CHLORIDE 100 mmol/L (101-111); CHOLESTEROL 148 mg/dL; GFR - MDRD 73 (>89); GLUCOSE 111 mg/dL (70-100); HDL CHOLESTEROL 49 mg/dL; LDL CHOLESTEROL,CALCULATED 81 mg/dL; LDL/HDL RATIO 1.7 (<3.6); SODIUM 138 mmol/L (135-145); TOTAL PROTEIN 7.2 g/dL (6.7-8.2); VLDL CHOLESTEROL 18 mg/dL
[2019-04-23 12:21] LABS: HEMOGLOBIN A1C 0.58 g/dL; HEMOGLOBIN A1C % 6.2 % (4.6-6.2)
== END 2019-04-23 23:59 | disposition home or self-care (01) ==
LOC: LAB.WCP 15:41
PROVIDERS: ATTEND Physician Assistant Medical
DX: E11.9 Type 2 diabetes mellitus without complications (principal); E61.1 Iron deficiency
CPT/HCPCS: 36415; 80053; 80061; 83036; 83721; 85025

== ENCOUNTER 2019-05-03 15:54 | Outpatient (CLI) | payer MEDICARE, OTHER | END 2019-05-03 15:55 | disposition home or self-care (01) | LOC: COV 15:54 | PROVIDERS: ATTEND Family Medicine | DX: R05 Cough (principal); R50.9 Fever, unspecified | CPT/HCPCS: 81599; U0002 ==

== ENCOUNTER 2019-07-20 08:00 | Outpatient (CLI) | payer MEDICARE, OTHER ==
[2019-07-20 18:20] LABS: BASOPHILS % (AUTO) 0.5 %; EOSINOPHILS # (AUTO) 0.2 10^3/uL (0.0-0.7); EOSINOPHILS % (AUTO) 2.6 %; HGB - HEMOGLOBIN 12.8 g/dL (14.0-18.0); LYMPHOCYTES # (AUTO) 1.5 10^3/uL (1.5-3.5); LYMPHOCYTES % (AUTO) 22.1 %; MEAN CORPUSCULAR HEMOGLOBIN 29.1 pg (27.0-31.0); MEAN CORPUSCULAR HGB CONC 31.2 g/dL (32.0-36.0); MEAN CORPUSCULAR VOLUME 93.2 fL (80.0-94.0); MEAN PLATELET VOLUME 10.4 fL (7.4-11.4); MONOCYTES # (AUTO) 0.6 10^3/uL (0.0-1.0); MONOCYTES % (AUTO) 9.8 %; NEUTROPHILS # (AUTO) 4.2 10^3/uL (1.5-6.6); NEUTROPHILS % (AUTO) 64.5 %; PLT - PLATELET COUNT 200 10^3/uL (130-450); RED CELL DISTRIBUTION WIDTH 12.3 % (12.0-15.0); WHITE BLOOD COUNT 6.6 x10^3/uL (4.8-10.8)
[2019-07-20 18:26] LABS: ALBUMIN 4.3 g/dL (3.2-5.5); ALBUMIN/GLOBULIN RATIO 1.4 (1.0-2.2); ALKALINE PHOSPHATASE 59 IU/L (42-121); ALT ALANINE AMINOTRANSFERASE 18 IU/L (10-60); AST ASPARTATE AMINOTRANSFERASE 16 IU/L (10-42); BILIRUBIN,TOTAL 0.8 mg/dL (0.2-1.0); BUN - BLOOD UREA NITROGEN 16 mg/dL (6-20); CALCIUM 9.3 mg/dL (8.5-10.3); CARBON DIOXIDE - CO2 29 mmol/L (21-32); CHLORIDE 100 mmol/L (101-111); CHOL/HDL RATIO 3.4 (<5.0); CHOLESTEROL 181 mg/dL; GLUCOSE 111 mg/dL (70-100); HDL CHOLESTEROL 54 mg/dL; LDL CHOLESTEROL,CALCULATED 105 mg/dL; LDL/HDL RATIO 1.9 (<3.6); SODIUM 138 mmol/L (135-145); TOTAL PROTEIN 7.3 g/dL (6.7-8.2); VLDL CHOLESTEROL 22 mg/dL
[2019-07-20 18:42] LABS: FERRITIN 22.5 ng/mL (23.9-336.2)
[2019-07-22 11:36] LABS: HB2 TOTAL 13.9 g/dL; HEMOGLOBIN A1C 0.61 g/dL; HEMOGLOBIN A1C % 6.2 % (4.6-6.2)
== END 2019-07-20 23:59 | disposition home or self-care (01) ==
LOC: LAB.WCP 08:00
PROVIDERS: ATTEND Physician Assistant Medical
DX: E11.9 Type 2 diabetes mellitus without complications (principal); E61.1 Iron deficiency
CPT/HCPCS: 36415; 80053; 80061; 82728; 83036; 83721; 84443; 85025

== ENCOUNTER 2019-11-17 10:20 | Outpatient (CLI) | payer MEDICARE, OTHER ==
[2019-11-17 12:06] LABS: BUN - BLOOD UREA NITROGEN 15 mg/dL (6-20); CALCIUM 9.2 mg/dL (8.5-10.3); CARBON DIOXIDE - CO2 28 mmol/L (21-32); CHLORIDE 99 mmol/L (101-111); CHOL/HDL RATIO 2.9 (<5.0); CHOLESTEROL 141 mg/dL; CREATININE 0.9 mg/dL (0.6-1.2); GLUCOSE 114 mg/dL (70-100); HDL CHOLESTEROL 48 mg/dL; LDL CHOLESTEROL,CALCULATED 74 mg/dL; LDL/HDL RATIO 1.5 (<3.6); SODIUM 138 mmol/L (135-145); VLDL CHOLESTEROL 19 mg/dL
[2019-11-17 12:14] LABS: HEMOGLOBIN A1c% 6.1 % (4.27-6.07)
== END 2019-11-17 23:59 | disposition home or self-care (01) ==
LOC: LAB.WCP 10:20
PROVIDERS: ATTEND Physician Assistant Medical
DX: E11.9 Type 2 diabetes mellitus without complications (principal)
CPT/HCPCS: 36415; 80048; 80061; 83036; 83721

== ENCOUNTER 2019-11-24 08:00 | Outpatient (CLI) | payer MEDICARE, OTHER ==
[2019-11-24 19:16] LABS: CREATININE,URINE 84.6 mg/dL
[2019-11-24 19:21] LABS: MICROALBUMIN,URINE < 0.2 mg/dL (0-300.0)
== END 2019-11-24 23:59 | disposition home or self-care (01) ==
LOC: LAB.R 08:00
PROVIDERS: ATTEND Physician Assistant Medical
DX: E11.9 Type 2 diabetes mellitus without complications (principal)
CPT/HCPCS: 82043; 82570

== ENCOUNTER 2020-05-24 07:00 | Outpatient (CLI) | payer MEDICARE, OTHER ==
[2020-05-24 18:26] LABS: BASOPHILS % (AUTO) 0.5 %; EOSINOPHILS # (AUTO) 0.2 10^3/uL (0.0-0.7); EOSINOPHILS % (AUTO) 3.2 %; HCT - HEMATOCRIT 39.1 % (42.0-52.0); HGB - HEMOGLOBIN 12.6 g/dL (14.0-18.0); LYMPHOCYTES # (AUTO) 1.5 10^3/uL (1.5-3.5); LYMPHOCYTES % (AUTO) 25.5 %; MEAN CORPUSCULAR HEMOGLOBIN 30.3 pg (27.0-31.0); MEAN CORPUSCULAR HGB CONC 32.2 g/dL (32.0-36.0); MEAN PLATELET VOLUME 10.4 fL (7.4-11.4); MONOCYTES # (AUTO) 0.6 10^3/uL (0.0-1.0); MONOCYTES % (AUTO) 9.3 %; NEUTROPHILS # (AUTO) 3.7 10^3/uL (1.5-6.6); NEUTROPHILS % (AUTO) 61.2 %; PLT - PLATELET COUNT 195 10^3/uL (130-450); RED BLOOD COUNT 4.16 10^6/uL (4.70-6.10); RED CELL DISTRIBUTION WIDTH 11.9 % (12.0-15.0)
[2020-05-24 18:31] LABS: CREATININE,URINE 154.8 mg/dL; MICROALBUM/CREATININE RATIO,UR 29.7 ug/mg (<30.0); MICROALBUMIN,URINE 4.6 mg/dL (0-300.0)
[2020-05-24 18:41] LABS: CALCIUM 9.2 mg/dL (8.5-10.3); POTASSIUM 3.4 mmol/L (3.5-5.0)
[2020-05-24 20:22] LABS: ESTIMATED AVERAGE GLUCOSE 128 mg/dL (70-100); HEMOGLOBIN A1c% 6.1 % (4.27-6.07)
== END 2020-05-24 23:59 | disposition home or self-care (01) ==
LOC: LAB.WCP 07:00
PROVIDERS: ATTEND Physician Assistant Medical
DX: E11.9 Type 2 diabetes mellitus without complications (principal); E61.1 Iron deficiency
CPT/HCPCS: 36415; 80048; 82043; 82570; 83036; 85025

== ENCOUNTER 2020-08-09 08:00 | Outpatient (CLI) | payer MEDICARE, OTHER ==
[2020-08-09 18:21] LABS: BASOPHILS % (AUTO) 0.4 %; EOSINOPHILS # (AUTO) 0.2 10^3/uL (0.0-0.7); HCT - HEMATOCRIT 39.1 % (42.0-52.0); HGB - HEMOGLOBIN 12.8 g/dL (14.0-18.0); LYMPHOCYTES # (AUTO) 1.7 10^3/uL (1.5-3.5); LYMPHOCYTES % (AUTO) 22.4 %; MEAN CORPUSCULAR HEMOGLOBIN 30.9 pg (27.0-31.0); MEAN CORPUSCULAR HGB CONC 32.7 g/dL (32.0-36.0); MEAN CORPUSCULAR VOLUME 94.4 fL (80.0-94.0); MEAN PLATELET VOLUME 10.4 fL (7.4-11.4); MONOCYTES # (AUTO) 0.8 10^3/uL (0.0-1.0); MONOCYTES % (AUTO) 11.2 %; NEUTROPHILS # (AUTO) 4.7 10^3/uL (1.5-6.6); NEUTROPHILS % (AUTO) 62.6 %; PLT - PLATELET COUNT 196 10^3/uL (130-450); RED BLOOD COUNT 4.14 10^6/uL (4.70-6.10); RED CELL DISTRIBUTION WIDTH 11.9 % (12.0-15.0); WHITE BLOOD COUNT 7.4 x10^3/uL (4.8-10.8)
[2020-08-09 18:49] LABS: ALBUMIN 4.3 g/dL (3.2-5.5); ALBUMIN/GLOBULIN RATIO 1.5 (1.0-2.2); ALKALINE PHOSPHATASE 61 IU/L (42-121); ALT ALANINE AMINOTRANSFERASE 23 IU/L (10-60); AST ASPARTATE AMINOTRANSFERASE 17 IU/L (10-42); BILIRUBIN,TOTAL 0.6 mg/dL (0.2-1.0); BUN - BLOOD UREA NITROGEN 17 mg/dL (6-20); CALCIUM 9.9 mg/dL (8.5-10.3); CARBON DIOXIDE - CO2 32 mmol/L (21-32); CHLORIDE 99 mmol/L (101-111); CHOL/HDL RATIO 3.7 (<5.0); CHOLESTEROL 168 mg/dL; CREATININE 0.9 mg/dL (0.6-1.2); GFR - MDRD 82 (>89); GLUCOSE 109 mg/dL (70-100); HDL CHOLESTEROL 45 mg/dL; LDL CHOLESTEROL,CALCULATED 79 mg/dL; LDL/HDL RATIO 1.8 (<3.6); POTASSIUM 3.9 mmol/L (3.5-5.0); SODIUM 141 mmol/L (135-145); TOTAL PROTEIN 7.2 g/dL (6.7-8.2); TRIGLYCERIDES 218 mg/dL; VLDL CHOLESTEROL 44 mg/dL
[2020-08-09 19:02] LABS: THYROID STIMULATING HORMONE 2.04 uIU/mL (0.34-5.60)
[2020-08-09 21:29] LABS: ESTIMATED AVERAGE GLUCOSE 128 mg/dL (70-100); HEMOGLOBIN A1c% 6.1 % (4.27-6.07)
== END 2020-08-09 23:59 | disposition home or self-care (01) ==
LOC: LAB.WCP 08:00
PROVIDERS: ATTEND Physician Assistant Medical
DX: E11.9 Type 2 diabetes mellitus without complications (principal); K51.90 Ulcerative colitis, unspecified, without complications
CPT/HCPCS: 36415; 80053; 80061; 83036; 83721; 84443; 85025

== ENCOUNTER 2021-02-06 11:33 | Outpatient (CLI) | payer MEDICARE, OTHER ==
[2021-02-06 18:43] LABS: CALCIUM 9.1 mg/dL (8.5-10.3); POTASSIUM 3.8 mmol/L (3.5-5.0)
[2021-02-06 20:00] LABS: ESTIMATED AVERAGE GLUCOSE 137 mg/dL (70-100); HEMOGLOBIN A1c% 6.4 % (4.27-6.07)
== END 2021-02-06 23:59 | disposition home or self-care (01) ==
LOC: LAB.WCP 11:33
PROVIDERS: ATTEND Physician Assistant Medical
DX: E11.9 Type 2 diabetes mellitus without complications (principal); I10 Essential (primary) hypertension
CPT/HCPCS: 36415; 80048; 83036

== ENCOUNTER 2022-04-26 09:57 | Outpatient (CLI) | payer MEDICARE, OTHER ==
[2022-04-26 11:50] LABS: BASOPHILS % (AUTO) 0.5 %; EOSINOPHILS # (AUTO) 0.2 10^3/uL (0.0-0.7); EOSINOPHILS % (AUTO) 3.6 %; HCT - HEMATOCRIT 28.8 % (42.0-52.0); HGB - HEMOGLOBIN 8.3 g/dL (14.0-18.0); LYMPHOCYTES # (AUTO) 1.2 10^3/uL (1.5-3.5); MEAN CORPUSCULAR HEMOGLOBIN 23.5 pg (27.0-31.0); MEAN CORPUSCULAR HGB CONC 28.8 g/dL (32.0-36.0); MEAN CORPUSCULAR VOLUME 81.6 fL (80.0-94.0); MONOCYTES # (AUTO) 0.6 10^3/uL (0.0-1.0); MONOCYTES % (AUTO) 10.2 %; NEUTROPHILS # (AUTO) 3.8 10^3/uL (1.5-6.6); NEUTROPHILS % (AUTO) 64.5 %; PLT - PLATELET COUNT 235 10^3/uL (130-450); RED BLOOD COUNT 3.53 10^6/uL (4.70-6.10); RED CELL DISTRIBUTION WIDTH 13.6 % (12.0-15.0); WHITE BLOOD COUNT 5.8 x10^3/uL (4.8-10.8)
[2022-04-26 11:53] LABS: BILIRUBIN,URINE NEGATIVE (NEGATIVE); GLUCOSE, URINE (UA) NEGATIVE (NEGATIVE); KETONES,URINE (UA) NEGATIVE (NEGATIVE); LEUKOCYTE ESTERASE, URINE NEGATIVE (NEGATIVE); NITRITE,URINE NEGATIVE (NEGATIVE); OCCULT BLOOD,URINE NEGATIVE (NEGATIVE); PROTEIN,URINE NEGATIVE (NEGATIVE); UROBILINOGEN,URINE 0.2 (NORMAL) E.U./dL (NORMAL)
[2022-04-26 11:57] LABS: SLIDE REVIEW? Indicated
[2022-04-26 12:00] LABS: BACTERIA,URINE Rare /HPF (None Seen); CLARITY,URINE CLEAR (CLEAR); RBC,URINE 0-5 /HPF (0-5); SQUAMOUS EPITHELIAL CELL,UR RARE Squamous (<= Few); WBC,URINE 0-3 /HPF (0-3)
[2022-04-26 12:06] LABS: ESTIMATED AVERAGE GLUCOSE 143 mg/dL (70-100); HEMOGLOBIN A1c% 6.6 % (4.27-6.07)
[2022-04-26 12:13] LABS: ALBUMIN 3.9 g/dL (3.2-5.5); ALBUMIN/GLOBULIN RATIO 1.3 (1.0-2.2); ALKALINE PHOSPHATASE 54 IU/L (42-121); ALT ALANINE AMINOTRANSFERASE 11 IU/L (10-60); AST ASPARTATE AMINOTRANSFERASE 13 IU/L (10-42); BILIRUBIN,TOTAL 0.5 mg/dL (0.2-1.0); BUN - BLOOD UREA NITROGEN 17 mg/dL (6-20); CALCIUM 9.8 mg/dL (8.5-10.3); CARBON DIOXIDE - CO2 30 mmol/L (21-32); CHLORIDE 101 mmol/L (101-111); CHOL/HDL RATIO 2.4 (<5.0); CHOLESTEROL 119 mg/dL; GFR - MDRD 72 (>89); GLUCOSE 124 mg/dL (70-100); HDL CHOLESTEROL 50 mg/dL; LDL CHOLESTEROL,CALCULATED 45 mg/dL; LDL/HDL RATIO 0.9 (<3.6); POTASSIUM 3.8 mmol/L (3.5-5.0); SODIUM 138 mmol/L (135-145); TRIGLYCERIDES 118 mg/dL; VLDL CHOLESTEROL 24 mg/dL
[2022-04-26 12:20] LABS: THYROID STIMULATING HORMONE 1.83 uIU/mL (0.34-5.60)
[2022-04-26 12:22] LABS: PLATELET ESTIMATE, MANUAL NORMAL (130-450,000) (NORMAL); PLATELET MORPHOLOGY NORMAL APPEARANCE (NORMAL); WBC MORPHOLOGY (MULTIPLE) NORMAL APPEARANCE (NORMAL)
[2022-04-26 12:27] LABS: FERRITIN 3.6 ng/mL (23.9-336.2)
[2022-04-26 12:31] LABS: CREATININE,URINE 197.8 mg/dL; MICROALBUM/CREATININE RATIO,UR 7.1 ug/mg (<30.0); MICROALBUMIN,URINE 1.4 mg/dL (0-300.0)
== END 2022-04-26 09:58 | disposition home or self-care (01) ==
LOC: LAB.N 09:57
PROVIDERS: ATTEND Physician Assistant Medical
DX: E11.9 Type 2 diabetes mellitus without complications (principal); R53.83 Other fatigue
CPT/HCPCS: 36415; 80053; 80061; 81001; 82043; 82306; 82570; 82607; 82728; 83036; 83721; 84443; 85025

== ENCOUNTER 2022-04-29 08:00 | Outpatient (CLI) | payer MEDICARE, OTHER ==
[2022-04-29 19:11] LABS: FECAL OCCULT BLOOD (FIT) NEGATIVE (NEGATIVE)
== END 2022-04-29 23:59 | disposition home or self-care (01) ==
LOC: LAB.N 08:00
PROVIDERS: ATTEND Physician Assistant Medical
DX: E61.1 Iron deficiency (principal)
CPT/HCPCS: 82274

== ENCOUNTER 2022-06-03 12:54 | Outpatient (CLI) | payer MEDICARE, OTHER ==
[2022-06-03 17:37] LABS: BASOPHILS % (AUTO) 0.5 %; EOSINOPHILS # (AUTO) 0.2 10^3/uL (0.0-0.7); EOSINOPHILS % (AUTO) 3.2 %; HCT - HEMATOCRIT 39.5 % (42.0-52.0); LYMPHOCYTES # (AUTO) 1.3 10^3/uL (1.5-3.5); LYMPHOCYTES % (AUTO) 17.3 %; MEAN CORPUSCULAR HGB CONC 30.4 g/dL (32.0-36.0); MEAN CORPUSCULAR VOLUME 88.8 fL (80.0-94.0); MEAN PLATELET VOLUME 10.1 fL (7.4-11.4); MONOCYTES # (AUTO) 0.6 10^3/uL (0.0-1.0); MONOCYTES % (AUTO) 7.6 %; NEUTROPHILS # (AUTO) 5.3 10^3/uL (1.5-6.6); PLT - PLATELET COUNT 234 10^3/uL (130-450); RED BLOOD COUNT 4.45 10^6/uL (4.70-6.10); RED CELL DISTRIBUTION WIDTH 19.1 % (12.0-15.0); WHITE BLOOD COUNT 7.5 x10^3/uL (4.8-10.8)
[2022-06-03 17:55] LABS: % IRON SATURATION 59 % (20-50); IRON 229 ug/dL (45-182); TOTAL IRON BINDING CAPACITY 389 ug/dL (250-450); TRANSFERRIN 278 mg/dL (180-329)
== END 2022-06-03 12:55 | disposition home or self-care (01) ==
LOC: LAB.N 12:54
PROVIDERS: ATTEND Physician Assistant Medical
DX: E61.1 Iron deficiency (principal)
CPT/HCPCS: 36415; 82728; 83540; 84466; 85025

== ENCOUNTER 2022-08-08 16:05 | Outpatient (CLI) | payer MEDICARE, OTHER ==
[2022-08-08 20:39] LABS: BASOPHILS % (AUTO) 0.5 %; EOSINOPHILS # (AUTO) 0.3 10^3/uL (0.0-0.7); HCT - HEMATOCRIT 41.9 % (42.0-52.0); HGB - HEMOGLOBIN 13.3 g/dL (14.0-18.0); LYMPHOCYTES # (AUTO) 1.3 10^3/uL (1.5-3.5); LYMPHOCYTES % (AUTO) 18.3 %; MEAN CORPUSCULAR HEMOGLOBIN 28.6 pg (27.0-31.0); MEAN CORPUSCULAR HGB CONC 31.7 g/dL (32.0-36.0); MEAN CORPUSCULAR VOLUME 90.1 fL (80.0-94.0); MEAN PLATELET VOLUME 10.4 fL (7.4-11.4); MONOCYTES # (AUTO) 0.8 10^3/uL (0.0-1.0); MONOCYTES % (AUTO) 11.5 %; NEUTROPHILS # (AUTO) 4.8 10^3/uL (1.5-6.6); NEUTROPHILS % (AUTO) 65.4 %; PLT - PLATELET COUNT 237 10^3/uL (130-450); RED BLOOD COUNT 4.65 10^6/uL (4.70-6.10); RED CELL DISTRIBUTION WIDTH 13.9 % (12.0-15.0); WHITE BLOOD COUNT 7.3 x10^3/uL (4.8-10.8)
[2022-08-08 21:00] LABS: % IRON SATURATION 25 % (20-50); IRON 93 ug/dL (45-182); TOTAL IRON BINDING CAPACITY 367 ug/dL (250-450); TRANSFERRIN 262 mg/dL (180-329)
== END 2022-08-08 16:06 | disposition home or self-care (01) ==
LOC: LAB.N 16:05
PROVIDERS: ATTEND Physician Assistant Medical
DX: E61.1 Iron deficiency (principal)
CPT/HCPCS: 36415; 82728; 83540; 84466; 85025

== ENCOUNTER 2022-10-30 10:35 | Outpatient (CLI) | payer MEDICARE, OTHER ==
[2022-10-30 12:27] LABS: BASOPHILS % (AUTO) 0.4 %; EOSINOPHILS # (AUTO) 0.2 10^3/uL (0.0-0.7); EOSINOPHILS % (AUTO) 3.4 %; HCT - HEMATOCRIT 39.2 % (42.0-52.0); HGB - HEMOGLOBIN 12.7 g/dL (14.0-18.0); LYMPHOCYTES # (AUTO) 1.1 10^3/uL (1.5-3.5); LYMPHOCYTES % (AUTO) 15.6 %; MEAN CORPUSCULAR HEMOGLOBIN 30.5 pg (27.0-31.0); MEAN CORPUSCULAR HGB CONC 32.4 g/dL (32.0-36.0); MEAN CORPUSCULAR VOLUME 94.2 fL (80.0-94.0); MONOCYTES # (AUTO) 0.6 10^3/uL (0.0-1.0); MONOCYTES % (AUTO) 9.2 %; NEUTROPHILS # (AUTO) 4.9 10^3/uL (1.5-6.6); PLT - PLATELET COUNT 211 10^3/uL (130-450); RED BLOOD COUNT 4.16 10^6/uL (4.70-6.10); RED CELL DISTRIBUTION WIDTH 12.5 % (12.0-15.0); WHITE BLOOD COUNT 6.9 x10^3/uL (4.8-10.8)
[2022-10-30 12:51] LABS: ALBUMIN 4.3 g/dL (3.2-5.5); ALBUMIN/GLOBULIN RATIO 1.9 (1.0-2.2); ALKALINE PHOSPHATASE 58 IU/L (42-121); ALT ALANINE AMINOTRANSFERASE 14 IU/L (10-60); AST ASPARTATE AMINOTRANSFERASE 11 IU/L (10-42); BILIRUBIN,TOTAL 0.4 mg/dL (0.2-1.0); BUN - BLOOD UREA NITROGEN 15 mg/dL (6-20); CALCIUM 9.9 mg/dL (8.5-10.3); CARBON DIOXIDE - CO2 32 mmol/L (21-32); CHLORIDE 100 mmol/L (101-111); CHOL/HDL RATIO 2.8 (<5.0); CHOLESTEROL 139 mg/dL; CREATININE 0.9 mg/dL (0.6-1.3); GFR - MDRD 81 (>89); GLUCOSE 141 mg/dL (74-104); HDL CHOLESTEROL 49 mg/dL; LDL CHOLESTEROL,CALCULATED 64 mg/dL; LDL/HDL RATIO 1.3 (<3.6); SODIUM 137 mmol/L (135-145); TOTAL PROTEIN 6.6 g/dL (6.4-8.9); TRIGLYCERIDES 128 mg/dL (48-352); VLDL CHOLESTEROL 26 mg/dL
[2022-10-30 14:04] LABS: ESTIMATED AVERAGE GLUCOSE 117 mg/dL (70-100); HEMOGLOBIN A1c% 5.7 % (4.27-6.07)
== END 2022-10-30 10:36 | disposition home or self-care (01) ==
LOC: LAB.N 10:35
PROVIDERS: ATTEND Physician Assistant Medical
DX: E11.9 Type 2 diabetes mellitus without complications (principal); E61.1 Iron deficiency
CPT/HCPCS: 36415; 80053; 80061; 83036; 83721; 85025

== ENCOUNTER 2023-02-28 11:23 | Outpatient (CLI) | payer MEDICARE, OTHER ==
[2023-02-28 17:47] LABS: BASOPHILS % (AUTO) 0.4 %; EOSINOPHILS # (AUTO) 0.2 10^3/uL (0.0-0.7); HCT - HEMATOCRIT 41.6 % (42.0-52.0); HGB - HEMOGLOBIN 13.4 g/dL (14.0-18.0); LYMPHOCYTES # (AUTO) 1.5 10^3/uL (1.5-3.5); LYMPHOCYTES % (AUTO) 18.9 %; MEAN CORPUSCULAR HGB CONC 32.2 g/dL (32.0-36.0); MEAN CORPUSCULAR VOLUME 93.3 fL (80.0-94.0); MONOCYTES # (AUTO) 0.6 10^3/uL (0.0-1.0); NEUTROPHILS # (AUTO) 5.8 10^3/uL (1.5-6.6); NEUTROPHILS % (AUTO) 71.2 %; PLT - PLATELET COUNT 203 10^3/uL (130-450); RED BLOOD COUNT 4.46 10^6/uL (4.70-6.10); RED CELL DISTRIBUTION WIDTH 11.9 % (12.0-15.0); WHITE BLOOD COUNT 8.1 x10^3/uL (4.8-10.8)
[2023-02-28 18:02] LABS: ALBUMIN 4.3 g/dL (3.2-5.5); ALBUMIN/GLOBULIN RATIO 1.6 (1.0-2.2); ALKALINE PHOSPHATASE 62 IU/L (42-121); ALT ALANINE AMINOTRANSFERASE 28 IU/L (10-60); AST ASPARTATE AMINOTRANSFERASE 17 IU/L (10-42); BILIRUBIN,TOTAL 0.5 mg/dL (0.2-1.0); BUN - BLOOD UREA NITROGEN 17 mg/dL (6-20); CALCIUM 9.9 mg/dL (8.5-10.3); CARBON DIOXIDE - CO2 34 mmol/L (21-32); CHLORIDE 98 mmol/L (101-111); CHOLESTEROL 134 mg/dL; CREATININE 0.9 mg/dL (0.6-1.3); GFR - MDRD 81 (>89); GLUCOSE 130 mg/dL (74-104); HDL CHOLESTEROL 44 mg/dL; LDL CHOLESTEROL,CALCULATED 53 mg/dL; LDL/HDL RATIO 1.2 (<3.6); SODIUM 142 mmol/L (135-145); TRIGLYCERIDES 183 mg/dL (48-352); VLDL CHOLESTEROL 37 mg/dL
[2023-02-28 20:46] LABS: ESTIMATED AVERAGE GLUCOSE 157 mg/dL (70-100); HEMOGLOBIN A1c% 7.1 % (4.27-6.07)
== END 2023-02-28 11:24 | disposition home or self-care (01) ==
LOC: LAB.N 11:23
PROVIDERS: ATTEND Physician Assistant Medical
DX: E78.5 Hyperlipidemia, unspecified (principal); E11.9 Type 2 diabetes mellitus without complications; E61.1 Iron deficiency
CPT/HCPCS: 36415; 80053; 80061; 83036; 83721; 85025

== ENCOUNTER 2023-07-01 10:56 | Outpatient (CLI) | payer MEDICARE, OTHER ==
[2023-07-01 17:52] LABS: BASOPHILS % (AUTO) 0.5 %; EOSINOPHILS # (AUTO) 0.3 10^3/uL (0.0-0.7); EOSINOPHILS % (AUTO) 3.3 %; HCT - HEMATOCRIT 42.3 % (42.0-52.0); HGB - HEMOGLOBIN 13.9 g/dL (14.0-18.0); LYMPHOCYTES # (AUTO) 1.1 10^3/uL (1.5-3.5); LYMPHOCYTES % (AUTO) 14.9 %; MEAN CORPUSCULAR HEMOGLOBIN 30.2 pg (27.0-31.0); MEAN CORPUSCULAR HGB CONC 32.9 g/dL (32.0-36.0); MEAN PLATELET VOLUME 10.5 fL (7.4-11.4); MONOCYTES # (AUTO) 0.7 10^3/uL (0.0-1.0); MONOCYTES % (AUTO) 8.6 %; NEUTROPHILS # (AUTO) 5.5 10^3/uL (1.5-6.6); PLT - PLATELET COUNT 201 10^3/uL (130-450); WHITE BLOOD COUNT 7.6 x10^3/uL (4.8-10.8)
[2023-07-01 18:04] LABS: CALCIUM 9.9 mg/dL (8.5-10.3); CREATININE 0.9 mg/dL (0.6-1.3); POTASSIUM 3.9 mmol/L (3.5-4.5)
[2023-07-01 20:46] LABS: ESTIMATED AVERAGE GLUCOSE 169 mg/dL (70-100); HEMOGLOBIN A1c% 7.5 % (4.27-6.07)
== END 2023-07-01 10:57 | disposition home or self-care (01) ==
LOC: LAB.N 10:56
PROVIDERS: ATTEND Physician Assistant Medical
DX: E61.1 Iron deficiency (principal); E11.9 Type 2 diabetes mellitus without complications
CPT/HCPCS: 36415; 80048; 83036; 85025

== ENCOUNTER 2023-09-30 09:11 | Outpatient (CLI) | payer MEDICARE, OTHER ==
[2023-09-30 12:39] LABS: ESTIMATED AVERAGE GLUCOSE 151 mg/dL (70-100); HEMOGLOBIN A1c% 6.9 % (4.27-6.07)
[2023-09-30 12:44] LABS: ALBUMIN 4.2 g/dL (3.2-5.5); ALBUMIN/GLOBULIN RATIO 1.4 (1.0-2.2); ALKALINE PHOSPHATASE 71 IU/L (42-121); ALT ALANINE AMINOTRANSFERASE 13 IU/L (10-60); AST ASPARTATE AMINOTRANSFERASE 11 IU/L (10-42); BILIRUBIN,TOTAL 0.6 mg/dL (0.2-1.0); BUN - BLOOD UREA NITROGEN 13 mg/dL (6-20); CALCIUM 9.7 mg/dL (8.5-10.3); CARBON DIOXIDE - CO2 35 mmol/L (21-32); CHLORIDE 99 mmol/L (101-111); CHOL/HDL RATIO 3.1 (<5.0); CHOLESTEROL 138 mg/dL; CREATININE 0.9 mg/dL (0.6-1.3); GFR - MDRD 81 (>89); GLUCOSE 158 mg/dL (74-104); HDL CHOLESTEROL 45 mg/dL; LDL CHOLESTEROL,CALCULATED 71 mg/dL; LDL/HDL RATIO 1.6 (<3.6); SODIUM 139 mmol/L (135-145); TOTAL PROTEIN 7.1 g/dL (6.4-8.9); TRIGLYCERIDES 108 mg/dL; VLDL CHOLESTEROL 22 mg/dL
== END 2023-09-30 09:12 | disposition home or self-care (01) ==
LOC: LAB.N 09:11
PROVIDERS: ATTEND Physician Assistant Medical
DX: E11.9 Type 2 diabetes mellitus without complications (principal); E78.5 Hyperlipidemia, unspecified; N40.0 Benign prostatic hyperplasia without lower urinary tract symptoms
CPT/HCPCS: 36415; 80053; 80061; 83036; 83721; 84153

== ENCOUNTER 2023-11-07 10:12 | Outpatient (CLI) | payer MEDICARE, OTHER ==
--- NOTE | 2023-11-07 11:02 | XRAY Report ---
PROCEDURE: Chest 2V INDICATIONS: COPD TECHNIQUE: 2 views of the chest were acquired. COMPARISON: 07/06/2018. FINDINGS: Surgical changes and devices: None. Lungs and pleura: No pleural effusions or pneumothorax. Lungs are clear. Mediastinum: Aortic arch calcification is seen. Heart size is mildly enlarged. Bones and chest wall: No suspicious bony lesions. Overlying soft tissues appear unremarkable. IMPRESSION: No acute cardiopulmonary process. Reviewed by: Ryan Berkowitz MD on 11/07/2023 11:00 AM PDT Approved by: Ryan Berkowitz MD on 11/07/2023 11:00 AM PDT Station ID: [id number]
== END 2023-11-07 10:13 | disposition home or self-care (01) ==
LOC: DI.N 10:12
PROVIDERS: ATTEND Physician Assistant Medical
DX: J44.9 Chronic obstructive pulmonary disease, unspecified (principal)